=== PATIENT | female | born 1990 | race Caucasian/White ===

== ENCOUNTER 2019-01-12 03:52 | Emergency (ER) | payer MEDICAID ==
[~2019-01-12] VITALS: Ht 162.6 cm; Wt 61.2 kg
[2019-01-12 03:56] VITALS: BP 117/77
--- NOTE | 2019-01-12 03:59 | NUR ---
Note undone in EDM - 01/12/19 at 0403 by MOE FIRST CONTACT PATIENT CORRINE KIM FOR MEDICAL CLEARANCE, WARRANT FOR PATIENTS ARREST. PATIENT GCS 15, AAOX4. PATIENT DENIES ANY USE OF FORCE DURING ARREST. PATIENT BREATHING IS AND UNLABORED, EQUAL RISE AND FALL OF CHEST. PATIENT DOES STATE THAT SHE USES COCAINE 3 DAYS AGO. PATIENT DENIES ANY SI/HI. PATIENT DENIES ANY SOB/CP, NO N/V/D. PATIENT AMBULATORY WITH STEADY GAIT, NO ACUTE DISTRESS NOTED, WILL CONTINUE TO MONITOR
[2019-01-12 04:04] VITALS: BP 154/92
--- NOTE | 2019-01-12 04:04 | NUR ---
PT AMBULATED W/ STEADY GAIT TO BED 3.
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
--- NOTE | 2019-01-12 04:30 | NUR ---
DR. GARCIA BEDSIDE EVALUATING PT
[2019-01-12] MEDS ORDERED: HYDROcodone/APAP 5/325 MG 1 TAB TAB PO ONE (04:35)
--- NOTE | 2019-01-12 04:44 | NUR ---
PT TAKEN TO CT VIA WHEELCHAIR
--- NOTE | 2019-01-12 05:00 | NUR ---
PT RETURNED FROM CT VIA WHEELCHAIR
[2019-01-12 06:30] VITALS: BP 140/100
--- NOTE | 2019-01-12 06:30 | NUR ---
Patient discharged with v/s stable. Written and verbal after care instructions given and explained. Patient alert, oriented and verbalized understanding of instructions. Ambulatory with steady gait. All questions addressed prior to discharge. ID band removed. Patient advised to follow up with PMD. Rx of NAPROSYN, NORCO given. Patient educated on indication of medication including possible reaction and side effects. Opportunity to ask questions provided and answered.
== END 2019-01-12 06:30 | disposition home or self-care (01) ==
LOC: MED 03:52
DX: S02.2XXA Fracture of nasal bones, initial encounter for closed fracture (principal); X58.XXXA Exposure to other specified factors, initial encounter; Y93.89 Activity, other specified; Y92.89 Other specified places as the place of occurrence of the external cause; Y99.8 Other external cause status
CPT/HCPCS: 70450; 70486; 81025; 99284